=== PATIENT | female | born 1970 | race Caucasian/White ===

== ENCOUNTER → 2020-12-29 | Outpatient (CLI) | payer OTHER ==
[~2020-12-29] MED LIST: CYMBALTA60 MG PO; DESYREL 50 MG T50 MG PO; DEXILANT30 MG PO; K-DUR TAB 10 M10 MEQ PO; LASIX20 MG PO; LISINOPRIL40 MG PO; LOPRESSOR50 MG PO; NORVASC10 MG PO; WELLBUTRIN XL300 M1 PO; [UNRECOGNIZED DRUG - OTHER]; [UNRECOGNIZED DRUG - OTHER] SC
== END ==
LOC: KOH-I 10:17
DX: M79.672 Pain in left foot (principal); M19.071 Primary osteoarthritis, right ankle and foot
CPT/HCPCS: 73630

== ENCOUNTER → 2021-01-15 | Outpatient (CLI) | payer OTHER | LOC: EMI 10:31 | DX: M21.6X2 Other acquired deformities of left foot (principal); E11.40 Type 2 diabetes mellitus with diabetic neuropathy, unspecified; M79.672 Pain in left foot | CPT/HCPCS: 73718 ==

== ENCOUNTER → 2021-04-08 | Outpatient (CLI) | payer OTHER | LOC: HEART 5 08:41 | DX: R07.9 Chest pain, unspecified (principal); R06.02 Shortness of breath; I35.0 Nonrheumatic aortic (valve) stenosis; I34.0 Nonrheumatic mitral (valve) insufficiency | CPT/HCPCS: 78452; 93306; A9502; J2785 ==

== ENCOUNTER → 2021-05-12 | Outpatient (CLI) | payer BC ==
[~2021-05-12] MED LIST changes: +ASPIRIN EC81 MG PO; +CRESTOR20 MG PO; +HYDROCHLOROTHIA25 MG PO; +ISORDIL TAB 3030 MG PO; +NEURONTIN300 MG PO; +PROTONIX 40 MG40 M1 PO; +VITAMIN D31250 MCG PO
[2021-05-12 07:23] LABS: HEMOGLOBIN 12.4 gm/dl (12.3-15.3); RED BLOOD COUNT 4.4 M/UL (4.00-5.10); WHITE BLOOD COUNT 4.2 K/UL (4.5-11.0)
[2021-05-12 07:38] LABS: BUN/CREATININE RATIO 30 (0-10)
== END ==
LOC: CATH 06:13
PROVIDERS: Internal Medicine Cardiovascular Disease
DX: I25.118 Atherosclerotic heart disease of native coronary artery with other forms of angina pectoris (principal); I11.0 Hypertensive heart disease with heart failure; I50.30 Unspecified diastolic (congestive) heart failure; E11.42 Type 2 diabetes mellitus with diabetic polyneuropathy; E78.00 Pure hypercholesterolemia, unspecified; E78.5 Hyperlipidemia, unspecified; F41.9 Anxiety disorder, unspecified; K21.9 Gastro-esophageal reflux disease without esophagitis; Z79.899 Other long term (current) drug therapy; Z79.82 Long term (current) use of aspirin; Z79.4 Long term (current) use of insulin
CPT/HCPCS: 71045; 80048; 85025; 85610; 85730; 93005; 99152; 99153; C1769; C1887; C1894; J1644; J2250; J3010; J7030; Q9967

== ENCOUNTER → 2021-06-24 | Outpatient (CLI) | payer BC | LOC: KOH-I 14:56 | DX: M25.572 Pain in left ankle and joints of left foot (principal); M79.672 Pain in left foot; G62.9 Polyneuropathy, unspecified; M89.9 Disorder of bone, unspecified | CPT/HCPCS: 73610; 73630 ==

== ENCOUNTER → 2021-12-30 | Outpatient (CLI) | payer BC | LOC: KOH-I 13:19 | DX: M79.672 Pain in left foot (principal); M79.671 Pain in right foot; G62.9 Polyneuropathy, unspecified | CPT/HCPCS: 73630 ==